=== PATIENT | female | born 2005 | race Caucasian/White ===

== ENCOUNTER 2025-05-05 18:00 | Emergency (ER) | payer OTHER, SELFPAY ==
[2025-05-05 18:07] VITALS: BP 133/67; PULSE 95; RESP 20; TEMP 36.8; O2SAT 100; BMI 22.9
--- NOTE | 2025-05-05 18:13 | ED_ITS ---
HPI - General Adult General Date Seen: 05/05/25 Chief complaint: Allergic Reaction Stated complaint: allergic reaction, used epipen Time Seen by Provider: 05/05/25 18:13 History of Present Illness HPI narrative: 19 yo F with a history of allergy to tree nuts, milk, eggs, amoxicillin, presenting to the ER today with her mother with concern for allergic reaction. Less than an hour prior to arrival she was at the local ice cream shop. She ordered a vegan ice cream and a dull way up. These typically do not contain any milk and she has had them before without reaction. Shortly after having her being an ice cream she started to feel mild shortness of breath and some tightness in her throat suggestive for an allergic reaction. She treated herself with her EpiPen and also took Benadryl and Pepcid prior to arrival. Now that she is here in the ER all other symptoms are gone and she is feeling back to normal. However she and her mother came to the ER because typically when she has and retraction she receives treatment with a short course of prednisone. Mother also notes that she started on Prozac for anxiety this morning had her 1st dose. However the Prozac was taken quite a few hours prior to the onset of symptoms and the ice cream was directly before symptoms. Related Data Previous Rx's ?Medication ?Instructions ?Recorded epinephrine 0.3 mg/0.3 mL 0.3 mg (0.3 mL) IM Q5-15M MA N #2 ea 05/05/25 injection, auto-injector (EpiPen) prednisone 20 mg tablet 60 mg (3 x 20 mg) PO DAILY 3 days 05/05/25 #9 tabs Allergies Allergy/AdvReac Type Severity Reaction Status Date / Time amoxicillin Allergy Unknown Verified 05/05/25 18:11 cefdinir Allergy Unknown Verified 05/05/25 18:11 egg Allergy Unknown Verified 05/05/25 18:11 Milk Containing Products Allergy Unknown Verified 05/05/25 18:11 (Dairy) peanut Allergy Unknown Verified 05/05/25 18:11 tree nut Allergy Unknown Verified 05/05/25 18:11 Exam Narrative: Exam Narrative: Constitutional: Appears well-developed and well-nourished. Alert. Conversant. Non toxic. HENT: Head: Atraumatic. Nose: Nose normal. Mouth/Throat: Oral mucosa is clear and moist. no trismus. Pharynx normal. Tonsils symmetric. No tonsillar enlargement, erythema, or exudate. Eyes: Conjunctivae normal. EOM normal. Pupils equal, round, and reactive to light. No scleral icterus. Neck: Normal range of motion. Neck supple. No tracheal deviation present. Cardiovascular: Normal rate, regular rhythm. No gallop. No friction rub. No murmur heard. Symmetric radial artery pulses Pulmonary/Chest: Effort normal. No stridor. No respiratory distress. No wheezes. No rales. No rhonchi . No tenderness. Abdominal: Soft. No distension. No mass. No tenderness. No rebound. No guarding. Musculoskeletal: RUE: Normal range of motion. No tenderness. No deformity LUE: Normal range of motion. No tenderness. No deformity RLE: Normal range of motion. No edema. No tenderness. No deformity LLE: Normal range of motion. No edema. No tenderness. No deformity Lymph: No cervical adenopathy. Neurological: Alert and oriented to person, place, and time. Normal strength. CN II-VII intact. No sensory deficit. GCS eye subscore is 4. GCS verbal subscore is 5. GCS motor subscore is 6. Normal coordination Skin: Skin is warm and dry. No rash noted. No pallor. Normal capillary refill. No hives. Psychiatric: Normal mood. Normal affect. Polite Const: Vital Signs, click to edit/add: Vital Signs - 24 hr 05/05/25 18:07 Temperature 98.2 F Pulse Rate [Pulse Oximeter] 95 Respiratory Rate 20 [facility] 133/67 Pulse Oximetry 100 Oxygen Delivery Me thod Room Air Course Course ED Course: Recheck-continues to do well. She and her mother are well-versed in monitoring for allergic reaction and they are comfortable discharging home. Vital Signs Vital signs: Initial Vital Signs Temperature 98.2 F 05/05/25 18:07 Temperature Source Temporal Artery Scan 05/05/25 18:07 Pulse Rate 95 05/05/25 18:07 Respiratory Rate 20 05/05/25 18:07 Blood Pressure 133/67 05/05/25 18:07 Blood Pressure Mean 89 05/05/25 18:07 Blood Pressure Position Sitting 05/05/25 18:07 Pulse Oximetry 100 05/05/25 18:07 Oxygen Delivery Method Room Air 05/05/25 18:07 Vital Signs Temperature 98.2 F 05/05/25 18:07 Pulse Rate 95 05/05/25 18:07 Respiratory Rate 20 05/05/25 18:07 Blood Pressure 133/67 05/05/25 18:07 Pulse Oximetry 100 05/05/25 18:07 Oxygen Delivery Method Room Air 05/05/25 18:07 Temperature 98.2 F 05/05/25 18:07 Pulse Rate 95 05/05/25 18:07 Respiratory Rate 20 05/05/25 18:07 Blood Pressure 133/67 05/05/25 18:07 Pulse Oximetry 100 05/05/25 18:07 Oxygen Delivery Method Room Air 05/05/25 18:07 Medications Administered Medications: Generic Name Dose Route Start Last Admin Trade Name Charanjit PRN Reason Stop Dose Admin Prednisone 60 mg 05/05/25 18:34 05/05/25 18:44 Prednisone 20 Mg Tablet PO 05/05/25 18:35 60 mg ONCE ONE Administration Medical Decision Making [facility] Narrative Medical decision making narrative: This patient presents for evaluation of allergic reaction. Symptoms are consistent with allergic reaction. No airway involvement, bronchospasm, GI symptoms, hypotension, or other sign of anaphylaxis. She had already treated herself with EpiPen and antihistamines prior to arrival and had no ongoing symptoms or signs of allergic reaction here in the ER. Patient was treated here with additional medications (prednisone) as noted above. Symptoms improved after meds. Will send home with epipen, steroids, antihistamines. Potential for rebound reaction was discussed. Return of anaphylactic symptoms were discussed with patient and they were instructed to inject epi-pen and call 911 should these symptoms occur. Given the rapidity of resolution, lack of serious systemic symptoms, lack of respiratory difficulty and no oral or pharyngeal swelling, would not admit at this time for anaphylaxis. There is no signs of anaphylactic shock. Discharge Plan Discharge Clinical Impression: Allergic reaction Patient Disposition: Home, Self-Care Condition: Stable Instructions: Food Allergy (ED), General Allergic Reaction (ED) Additional Instructions: As we discussed, please return to the ER right away if you have any concerns, especially if you develop worsening hives, swelling in your throat, trouble breathing, lightheadedness or dizziness or fainting. Please continue the prednisone for 3 more days. Continue on Benadryl or Zyrtec or other antihistamines for the next 2-3 days to help prevent rebound allergic reaction. Prescriptions: New epinephrine [EpiPen] 0.3 mg/0.3 mL auto-injector 0.3 mg IM Q5-15M PRNQty: 2 0RF Rx Instructions: do not exceed 3 doses per episode prednisone 20 mg tablet 60 mg PO DAILY 3 Days Qty: 9 0RF Rx Instructions: days 11-21 of therapy Stand Alone Forms: MyHealth Info Instructions
== END 2025-05-05 19:51 | disposition home or self-care (01) ==
PROVIDERS: Emergency Provider Emergency Medicine
DX: R06.02 Shortness of breath (principal); T78.1XXA Other adverse food reactions, not elsewhere classified, initial encounter
CPT/HCPCS: 99282; 99283; J7512